=== PATIENT | female | born 1935 | race Asian ===

== ENCOUNTER 2021-12-29 21:09 | Emergency (ER) | payer OTHER ==
[~2021-12-29] VITALS: Ht 162.6 cm; Wt 59.0 kg
[2021-12-29 21:14] VITALS: BP 179/72
--- NOTE | 2021-12-29 21:14 | NUR ---
PT BIBA BLS. TAKEN TO BED 9
--- NOTE | 2021-12-29 21:44 | NUR ---
86 YO F BIBA FROM HOME C/O GEN WEAKNESS S/P INGESTION OF TRAZADONE 100MG AT 2015. PT IS A&O X1, HAS HISTORY OF DEMENTIA, IS A POOR HISTORIAN. PT DENIES PAIN AND DISCOMFORT, PT STATES SHE IS LOOKING FOR HER DAUGHTER. MEDHX- HTN, DEMENTIA ALLX- MORPHINE, CODEINE
--- NOTE | 2021-12-29 22:23 | NUR ---
Dr. Rosas examining patient.
--- NOTE | 2021-12-29 23:00 | NUR ---
PT IS AWAKE AND ALERT. DENIES PAIN AND DISCOMFORT AND IS ASKING FOR HER DAUGHTER. ALL NEEDS MET AT THIS TIME. BED LOCKED IN LOWEST POSITION, SIDE RAILS X2 FOR SAFETY. VSS. PT IN STABLE CONDITION.
[2021-12-29 23:47] LABS: BASOPHILS % (AUTO) 0.3 % (0.0-2.0); EOSINOPHILS # (AUTO) 0.1 K/uL (0-0.4); EOSINOPHILS % (AUTO) 1.4 % (0.0-4.0); HEMOGLOBIN 12.3 g/dL (12.0-16.0); LYMPHOCYTES # (AUTO) 1.1 K/uL (2.5-16.5); LYMPHOCYTES % (AUTO) 12.7 % (20.5-51.1); MEAN CORPUSCULAR HEMOGLOBIN 29 pg (27-31); MEAN CORPUSCULAR HGB CONC 33 g/dL (33-37); MONOCYTES # (AUTO) 0.4 K/uL (0.8-1.0); MONOCYTES % (AUTO) 4.5 % (1.7-9.3); NEUTROPHILS # (AUTO) 6.9 K/uL (1.8-7.7); NEUTROPHILS % (AUTO) 81.1 % (42.2-75.2); PLATELET COUNT (AUTO) 194 K/uL (140-450); RED BLOOD CELL COUNT(AUTO) 4.25 MIL/uL (4.20-5.40); RED CELL DISTRIBUTION WIDTH 14.5 % (11.6-13.7); WHITE BLOOD COUNT (AUTO) 8.5 K/uL (4.8-10.8)
[2021-12-30 00:06] LABS: ALBUMIN 3.4 g/dL (3.4-5.0); ANION GAP 10.5 (8-16); ASPARTATE AMINOTRANSFERASE 11 U/L (15-37); CARBON DIOXIDE 30.8 mmol/L (21-32); CHLORIDE 106 mmol/L (98-107); CREATININE 0.9 mg/dL (0.6-1.3); GLUCOSE 119 mg/dL (74-106); POTASSIUM 3.3 mmol/L (3.5-5.1); SODIUM SERUM 144 mmol/L (136-145); TOTAL BILIRUBIN 0.4 mg/dL (0.0-1.0); UREA NITROGEN, BLOOD 25 mg/dL (7-18)
--- NOTE | 2021-12-30 00:11 | NUR ---
URINE COLLECTED AND TAKEN TO LAB.
[2021-12-30] MEDS ORDERED: POTASSIUM CHLORIDE 10 MEQ TABER PO ONE (00:35)
[2021-12-30 00:47] LABS: APPEARANCE,URINE CLEAR (CLEAR); BILIRUBIN,URINE NEGATIVE (NEGATIVE); BLOOD, URINE 1+ (NEGATIVE); COLOR,URINE YELLOW (YELLOW); LEUKOCYTE ESTERASE ,URINE NEGATIVE (NEGATIVE); NITRITE, URINE NEGATIVE (NEGATIVE); UGLUCOSE NEGATIVE (NEGATIVE)
[2021-12-30 00:58] LABS: RBC,URINE 0-5 /HPF (0-5); WBC,URINE 0-5 /HPF (0-5)
--- NOTE | 2021-12-30 01:23 | NUR ---
PT APPEARS TO BE RESTING. EQUAL RISE AND FALL OF CHEST WALL. VSS. PT IS IN STABLE CONDITION. ALL NEEDS MET AT THIS TIME. BED LOCKED IN LOWEST POSITION, SIDE RAILS X2 FOR SAFETY.
[2021-12-30] MEDS ORDERED: POTA10TA70 PO (01:45)
--- NOTE | 2021-12-30 07:11 | NUR ---
REPORT GIVEN TO MARBELLA AWAD. TRANSFER OF CARE AT THIS TIME.
--- NOTE | 2021-12-30 07:18 | NUR ---
Report received from MARBELLA Atkinson. Patient is resting on bed.
[2021-12-30 07:24] LABS: BARBITURATE, URINE NEGATIVE ng/ml (NEG <=200); BENZODIAZEPINE, URINE NEGATIVE ng/mL (NEG <=200); CANNABINOID, URINE NEGATIVE ng/mL (NEG <=50); COCAINE, URINE NEGATIVE ng/mL (NEG <=300); OPIATE, URINE NEGATIVE ng/mL (NEG <=2000); PHENCYCLIDINE SCREEN,URINE NEGATIVE ng/mL (NEG <=25)
--- NOTE | 2021-12-30 08:20 | NUR ---
Patient provided with breakfast tray. Feeder 1 on 1.
--- NOTE | 2021-12-30 09:32 | NUR ---
Spoke to Keyla regarding transportation estimated picking tech time from [phone]. Keyla was made aware and is unable to provide transportation at this time.
--- NOTE | 2021-12-30 11:22 | NUR ---
SPOKE WITH ROBERT, PTS DAUGHTER. SHE SET UP TRANSPORTATION WITH [facility] TO TRANSPORT PT BACK HOME. CONFIRMATION #[id number]. ROBERT WILL CALL BACK WITH [facility] FOR RECONCILIATION COORDINATOR.
--- NOTE | 2021-12-30 12:29 | NUR ---
pt repositioned in bed, high fowlers, pt given lunch tray at this time
--- NOTE | 2021-12-30 12:49 | NUR ---
SPOKE WITH PT'S DAUGTHER, MADE AWARE [facility] TRANSPORT ARRIVED AT BEDSIDE AND PT WILL BE DISCHARGED.
--- NOTE | 2021-12-30 12:49 | NUR ---
[facility] BEDSIDE TO TRANSPORT PATIENT HOME
--- NOTE | 2021-12-30 13:03 | NUR ---
Patient discharged with v/s stable. Written and verbal after care instructions given. Patient alert, oriented and verbalized understanding of instructions. Ambulance Transport with to home. All questions addressed prior to discharge. ID band removed. Patient advised to follow up with PMD. Rx of K-Dur given. Opportunity to ask questions provided and answered.
[2021-12-30 13:04] VITALS: BP 165/76
== END 2021-12-30 13:03 | disposition home or self-care (01) ==
LOC: MED 21:09
DX: F03.90 Unspecified dementia, unspecified severity, without behavioral disturbance, psychotic disturbance, mood disturbance, and anxiety (principal); F91.9 Conduct disorder, unspecified; E87.6 Hypokalemia; G47.00 Insomnia, unspecified; I10 Essential (primary) hypertension; Z88.5 Allergy status to narcotic agent; Z79.899 Other long term (current) drug therapy
CPT/HCPCS: 36415; 80053; 80305; 81001; 85025; 93005; 99284